=== PATIENT | female | born 1975 | race African-American/Black ===

== ENCOUNTER 2017-08-07 11:51 | Emergency (ER) | payer MEDICAID | END 2017-08-07 13:44 | disposition home or self-care (01) | LOC: D.ER 11:51 | DX: R06.00 Dyspnea, unspecified (principal); J98.4 Other disorders of lung; F17.200 Nicotine dependence, unspecified, uncomplicated ==

== ENCOUNTER 2017-11-01 04:59 | Emergency (ER) | payer BC | END 2017-11-01 06:35 | disposition home or self-care (01) | LOC: D.ER 04:59 | DX: J20.9 Acute bronchitis, unspecified (principal); J98.4 Other disorders of lung; F17.200 Nicotine dependence, unspecified, uncomplicated ==

== ENCOUNTER 2018-03-05 21:42 | Inpatient (IN) | payer BC ==
[~2018-03-05] VITALS: Ht 154.9 cm; Wt 50.0 kg
[2018-03-05 22:28] LABS: MCHC 24.7 g/dL (31.0-37.0); PLATELET COUNT 168 10x3/uL (130-400); RBC 3.54 10x6/uL (4.00-5.40); RDW 23.4 % (11.5-14.5); WBC 10.5 10x3/uL (4.8-10.8)
[2018-03-05 22:29] LABS: HEMATOCRIT 17.4 % (36.0-48.0); HEMOGLOBIN 4.3 g/dL (12-16); MCH 12.1 pg (26.0-34.0); MCV 49.2 fL (80.0-100.0)
[2018-03-05 22:44] LABS: ALBUMIN 3.4 g/dL (3.4-5.0); ALKALINE PHOSPHATASE 111 U/L (46-116); ALT (SGPT) 17 U/L (10-68); CALC OSMOLALITY 270 mosm/kg (275-300); CALCIUM 8.4 mg/dL (8.5-10.1); CARBON DIOXIDE 25.6 mmol/L (21.0-32.0); CHLORIDE - SERUM 103 mmol/L (98-107); CREATININE - SERUM 0.7 mg/dL (0.6-1.3); GLUCOSE 106 mg/dL (74-106); POTASSIUM - SERUM 3.6 mmol/L (3.5-5.1); PROTEIN - SERUM 8.5 g/dL (6.4-8.2); SODIUM 136 mmol/L (136-145); TROPONIN-I < 0.017 ng/mL (0.000-0.060); UREA NITROGEN 9 mg/dL (7-18); eGFR NON AFRICAN AMERICAN > 90 mL/min (90-120)
[2018-03-05 23:10] LABS: INR 1.19 (0.85-1.17); PROTIME 14.6 SECONDS (11.6-15.0)
[2018-03-06] VITALS (32 sets, daily range): BP systolic 102–128; BP diastolic 44–86; Ht 154.9 cm; Wt 50.0 kg
[2018-03-06] MEDS ORDERED: VENTOLIN HFA18 GM INH (04:32)
[2018-03-06 14:16] LABS: BASOPHILS 0.4 % (0-2); EOSINOPHILS 0.1 % (0-7); HEMATOCRIT 30.3 % (36.0-48.0); HEMOGLOBIN 8.9 g/dL (12-16); IMMATURE GRANULOCYTES 0.4 % (0-5); LYMPHOCYTES 9.8 % (15-50); MCH 17.9 pg (26.0-34.0); MCHC 29.4 g/dL (31.0-37.0); MCV 61.1 fL (80.0-100.0); MONOCYTES 10.2 % (2-11); NEUTROPHILS 79.1 % (40-80); PLATELET COUNT 143 10x3/uL (130-400); RBC 4.96 10x6/uL (4.00-5.40)
[2018-03-06 16:17] LABS: HCG SERUM NEGATIVE (NEGATIVE)
[2018-03-06 20:02] LABS: BASOPHILS 0.3 % (0-2); EOSINOPHILS 0.2 % (0-7); HEMATOCRIT 27.3 % (36.0-48.0); HEMOGLOBIN 7.9 g/dL (12-16); IMMATURE GRANULOCYTES 0.3 % (0-5); LYMPHOCYTES 14.3 % (15-50); MCHC 28.9 g/dL (31.0-37.0); MCV 61.2 fL (80.0-100.0); MONOCYTES 11.2 % (2-11); NEUTROPHILS 73.7 % (40-80); PLATELET COUNT 146 10x3/uL (130-400); RBC 4.46 10x6/uL (4.00-5.40); WBC 10.8 10x3/uL (4.8-10.8)
[2018-03-06 20:03] LABS: MCH 17.7 pg (26.0-34.0)
[2018-03-07] VITALS (20 sets, daily range): BP systolic 96–121; BP diastolic 53–79
[2018-03-07 04:10] LABS: BASOPHILS 0.3 % (0-2); EOSINOPHILS 0.3 % (0-7); HEMATOCRIT 25.6 % (36.0-48.0); IMMATURE GRANULOCYTES 0.2 % (0-5); LYMPHOCYTES 12.1 % (15-50); MCHC 28.9 g/dL (31.0-37.0); MCV 61.7 fL (80.0-100.0); MONOCYTES 8.4 % (2-11); NEUTROPHILS 78.7 % (40-80); PLATELET COUNT 141 10x3/uL (130-400); RBC 4.15 10x6/uL (4.00-5.40); WBC 10.1 10x3/uL (4.8-10.8)
[2018-03-07 04:15] LABS: HEMOGLOBIN 7.4 g/dL (12-16); MCH 17.8 pg (26.0-34.0)
[2018-03-07 04:23] LABS: INR 1.25 (0.85-1.17); PROTIME 15.2 SECONDS (11.6-15.0)
[2018-03-07 04:28] LABS: ALBUMIN 2.9 g/dL (3.4-5.0); ALKALINE PHOSPHATASE 94 U/L (46-116); ALT (SGPT) 15 U/L (10-68); AMYLASE - SERUM 27 U/L (25-115); CALC OSMOLALITY 277 mosm/kg (275-300); CARBON DIOXIDE 25.3 mmol/L (21.0-32.0); CHLORIDE - SERUM 107 mmol/L (98-107); GLUCOSE 89 mg/dL (74-106); POTASSIUM - SERUM 3.2 mmol/L (3.5-5.1); PRE-ALBUMIN 8.6 mg/dL (18.0-35.7); PROTEIN - SERUM 7.5 g/dL (6.4-8.2); SODIUM 141 mmol/L (136-145); UREA NITROGEN 7 mg/dL (7-18)
[2018-03-07 04:33] LABS: CREATININE - SERUM 0.5 mg/dL (0.6-1.3); LIPASE 34 U/L (73-393); eGFR NON AFRICAN AMERICAN > 90 mL/min (90-120)
[2018-03-07 08:16] LABS: BASOPHILS 0.5 % (0-2); EOSINOPHILS 0.4 % (0-7); HEMATOCRIT 24.9 % (36.0-48.0); IMMATURE GRANULOCYTES 0.2 % (0-5); LYMPHOCYTES 12.2 % (15-50); MCHC 28.9 g/dL (31.0-37.0); MCV 62.1 fL (80.0-100.0); MONOCYTES 9.6 % (2-11); NEUTROPHILS 77.1 % (40-80); PLATELET COUNT 142 10x3/uL (130-400); RBC 4.01 10x6/uL (4.00-5.40); WBC 9.4 10x3/uL (4.8-10.8)
[2018-03-07 08:18] LABS: HEMOGLOBIN 7.2 g/dL (12-16)
[2018-03-07 19:05] LABS: BASOPHILS 0.4 % (0-2); EOSINOPHILS 0.4 % (0-7); IMMATURE GRANULOCYTES 0.2 % (0-5); LYMPHOCYTES 10.2 % (15-50); MONOCYTES 10.1 % (2-11); NEUTROPHILS 78.7 % (40-80); PLATELET COUNT 150 10x3/uL (130-400); WBC 10.6 10x3/uL (4.8-10.8)
[2018-03-07 19:06] LABS: HEMOGLOBIN 9.6 g/dL (12-16); RBC 4.83 10x6/uL (4.00-5.40)
[2018-03-07 19:07] LABS: MCH 19.9 pg (26.0-34.0); MCV 66.3 fL (80.0-100.0)
[2018-03-08 03:00] VITALS: BP 113/75
[2018-03-08 03:27] LABS: BASOPHILS 0.2 % (0-2); EOSINOPHILS 0.7 % (0-7); HEMATOCRIT 31.9 % (36.0-48.0); HEMOGLOBIN 9.5 g/dL (12-16); IMMATURE GRANULOCYTES 0.1 % (0-5); LYMPHOCYTES 7.2 % (15-50); MCHC 29.8 g/dL (31.0-37.0); MONOCYTES 4.9 % (2-11); NEUTROPHILS 86.9 % (40-80); RBC 4.76 10x6/uL (4.00-5.40); WBC 9.1 10x3/uL (4.8-10.8)
[2018-03-08 03:34] LABS: PLATELET COUNT 117 10x3/uL (130-400)
[2018-03-08 03:52] LABS: ALBUMIN 2.8 g/dL (3.4-5.0); ALKALINE PHOSPHATASE 89 U/L (46-116); ALT (SGPT) 14 U/L (10-68); BILIRUBIN - TOTAL 1.15 mg/dL (0.2-1.3); CALC OSMOLALITY 273 mosm/kg (275-300); CALCIUM 8.2 mg/dL (8.5-10.1); CHLORIDE - SERUM 107 mmol/L (98-107); CREATININE - SERUM 0.4 mg/dL (0.6-1.3); GLUCOSE 91 mg/dL (74-106); POTASSIUM - SERUM 3.7 mmol/L (3.5-5.1); PROTEIN - SERUM 7.6 g/dL (6.4-8.2); SODIUM 138 mmol/L (136-145); UREA NITROGEN 8 mg/dL (7-18); eGFR NON AFRICAN AMERICAN > 90 mL/min (90-120)
[2018-03-08 07:00] VITALS: BP 113/65
[2018-03-08 08:42] LABS: BASOPHILS 0.1 % (0-2); EOSINOPHILS 0 % (0-7); HEMATOCRIT 36.3 % (36.0-48.0); HEMOGLOBIN 10.7 g/dL (12-16); IMMATURE GRANULOCYTES 0.2 % (0-5); LYMPHOCYTES 9.1 % (15-50); MCH 19.9 pg (26.0-34.0); MCHC 29.5 g/dL (31.0-37.0); MCV 67.6 fL (80.0-100.0); MONOCYTES 1.8 % (2-11); NEUTROPHILS 88.8 % (40-80); PLATELET COUNT 150 10x3/uL (130-400); RBC 5.37 10x6/uL (4.00-5.40); WBC 9.1 10x3/uL (4.8-10.8)
[2018-03-08 10:54] VITALS: BP 118/85
[2018-03-08 13:55] LABS: BASOPHILS 0.1 % (0-2); EOSINOPHILS 0 % (0-7); HEMATOCRIT 32.8 % (36.0-48.0); HEMOGLOBIN 9.8 g/dL (12-16); IMMATURE GRANULOCYTES 0.1 % (0-5); MCH 20.1 pg (26.0-34.0); MCHC 29.9 g/dL (31.0-37.0); MCV 67.4 fL (80.0-100.0); MONOCYTES 0.9 % (2-11); NEUTROPHILS 91.9 % (40-80); PLATELET COUNT 158 10x3/uL (130-400); RBC 4.87 10x6/uL (4.00-5.40); WBC 8.7 10x3/uL (4.8-10.8)
[2018-03-08 15:02] VITALS: BP 105/62
[2018-03-08 19:52] LABS: BASOPHILS 0 % (0-2); EOSINOPHILS 0 % (0-7); HEMATOCRIT 35.2 % (36.0-48.0); HEMOGLOBIN 10.5 g/dL (12-16); IMMATURE GRANULOCYTES 0.2 % (0-5); LYMPHOCYTES 9.1 % (15-50); MCH 20.2 pg (26.0-34.0); MCHC 29.8 g/dL (31.0-37.0); MCV 67.6 fL (80.0-100.0); MONOCYTES 2.1 % (2-11); NEUTROPHILS 88.6 % (40-80); PLATELET COUNT 161 10x3/uL (130-400); RBC 5.21 10x6/uL (4.00-5.40); WBC 8.3 10x3/uL (4.8-10.8)
[2018-03-08 21:56] VITALS: BP 115/56
[2018-03-09 02:21] LABS: BASOPHILS 0 % (0-2); EOSINOPHILS 0 % (0-7); HEMATOCRIT 32.4 % (36.0-48.0); HEMOGLOBIN 9.7 g/dL (12-16); IMMATURE GRANULOCYTES 0.2 % (0-5); LYMPHOCYTES 9.9 % (15-50); MCH 20.1 pg (26.0-34.0); MCHC 29.9 g/dL (31.0-37.0); MCV 67.2 fL (80.0-100.0); NEUTROPHILS 81.9 % (40-80); PLATELET COUNT 214 10x3/uL (130-400); RBC 4.82 10x6/uL (4.00-5.40); WBC 12.4 10x3/uL (4.8-10.8)
[2018-03-09 02:28] VITALS: BP 107/58
[2018-03-09 02:33] LABS: ALBUMIN 2.8 g/dL (3.4-5.0); ALKALINE PHOSPHATASE 85 U/L (46-116); ALT (SGPT) 13 U/L (10-68); CALC OSMOLALITY 284 mosm/kg (275-300); CALCIUM 8.2 mg/dL (8.5-10.1); CHLORIDE - SERUM 107 mmol/L (98-107); CREATININE - SERUM 0.6 mg/dL (0.6-1.3); GLUCOSE 135 mg/dL (74-106); POTASSIUM - SERUM 3.4 mmol/L (3.5-5.1); PROTEIN - SERUM 7.6 g/dL (6.4-8.2); SODIUM 142 mmol/L (136-145); UREA NITROGEN 12 mg/dL (7-18); eGFR NON AFRICAN AMERICAN > 90 mL/min (90-120)
[2018-03-09 09:41] VITALS: BP 133/82
[2018-03-09 09:49] LABS: BASOPHILS 0.1 % (0-2); EOSINOPHILS 0.1 % (0-7); HEMATOCRIT 32.7 % (36.0-48.0); HEMOGLOBIN 9.7 g/dL (12-16); IMMATURE GRANULOCYTES 0.3 % (0-5); LYMPHOCYTES 12.5 % (15-50); MCHC 29.7 g/dL (31.0-37.0); MCV 67.3 fL (80.0-100.0); MONOCYTES 8.5 % (2-11); NEUTROPHILS 78.5 % (40-80); PLATELET COUNT 182 10x3/uL (130-400); RBC 4.86 10x6/uL (4.00-5.40); WBC 15.1 10x3/uL (4.8-10.8)
[2018-03-09 12:12] LABS: CA 19-9 34 U/mL (0-35); CEA 1.2 ng/mL (0.0-4.7)
[2018-03-09] MEDS ORDERED: CARAFATE1 G/10 ML PO (12:15)
[2018-03-09] MEDS ORDERED: NICODERM C1 PATCH .3 TRANSDERM (12:15)
[2018-03-09] MEDS ORDERED: PROTONIX40 MG PO (12:16)
[2018-03-09] MEDS ORDERED: FERROUS SULFAT325 MG PO (12:16)
[2018-03-09 13:34] VITALS: BP 124/77
[2018-03-09 14:37] LABS: BASOPHILS 0.2 % (0-2); EOSINOPHILS 0.2 % (0-7); HEMATOCRIT 31.4 % (36.0-48.0); HEMOGLOBIN 9.3 g/dL (12-16); IMMATURE GRANULOCYTES 0.2 % (0-5); LYMPHOCYTES 12.2 % (15-50); MCH 20.1 pg (26.0-34.0); MCHC 29.6 g/dL (31.0-37.0); MCV 67.8 fL (80.0-100.0); MONOCYTES 7.1 % (2-11); NEUTROPHILS 80.1 % (40-80); PLATELET COUNT 184 10x3/uL (130-400); RBC 4.63 10x6/uL (4.00-5.40)
[2018-03-09 14:44] LABS: SCLERODERMA AB (SCL-70) <0.2 AI (0.0-0.9); SJOGRENS AB SSA <0.2 AI (0.0-0.9)
[2018-03-09 17:17] VITALS: BP 139/89
[2018-03-09 21:06] LABS: BASOPHILS 0.3 % (0-2); EOSINOPHILS 0.6 % (0-7); HEMATOCRIT 30.6 % (36.0-48.0); HEMOGLOBIN 8.9 g/dL (12-16); IMMATURE GRANULOCYTES 0.3 % (0-5); LYMPHOCYTES 10.4 % (15-50); MCHC 29.1 g/dL (31.0-37.0); MONOCYTES 5.4 % (2-11); PLATELET COUNT 182 10x3/uL (130-400); WBC 10.1 10x3/uL (4.8-10.8)
[2018-03-09 21:07] LABS: MCH 19.8 pg (26.0-34.0)
[2018-03-09 22:09] VITALS: BP 131/76
[2018-03-10 00:17] VITALS: BP 134/78
[2018-03-10 04:31] VITALS: BP 148/74
[2018-03-10 07:51] LABS: BASOPHILS 0.1 % (0-2); EOSINOPHILS 0 % (0-7); HEMATOCRIT 30.8 % (36.0-48.0); HEMOGLOBIN 9.1 g/dL (12-16); IMMATURE GRANULOCYTES 0.3 % (0-5); MCH 20.2 pg (26.0-34.0); MCHC 29.5 g/dL (31.0-37.0); MCV 68.3 fL (80.0-100.0); MONOCYTES 1.4 % (2-11); NEUTROPHILS 91.2 % (40-80); PLATELET COUNT 210 10x3/uL (130-400); RBC 4.51 10x6/uL (4.00-5.40)
[2018-03-10 08:03] LABS: ALBUMIN 2.5 g/dL (3.4-5.0); ALKALINE PHOSPHATASE 75 U/L (46-116); ALT (SGPT) 13 U/L (10-68); BILIRUBIN - TOTAL 0.51 mg/dL (0.2-1.3); CALC OSMOLALITY 281 mosm/kg (275-300); CALCIUM 8.4 mg/dL (8.5-10.1); CARBON DIOXIDE 23.1 mmol/L (21.0-32.0); CHLORIDE - SERUM 108 mmol/L (98-107); GLUCOSE 110 mg/dL (74-106); POTASSIUM - SERUM 3.8 mmol/L (3.5-5.1); SODIUM 141 mmol/L (136-145); UREA NITROGEN 12 mg/dL (7-18)
[2018-03-10 08:04] LABS: CREATININE - SERUM 0.4 mg/dL (0.6-1.3); eGFR NON AFRICAN AMERICAN > 90 mL/min (90-120)
[2018-03-10 08:10] VITALS: BP 135/81
[2018-03-10] MEDS ORDERED: LEVAQUIN750 MG PO (11:35)
[2018-03-10 11:41] VITALS: BP 118/62
[2018-03-11 16:58] LABS: HGB - A 97.8 % (96.4-98.8); HGB - A2 2.2 % (1.8-3.2); HGB - INTERPRETATION Note: (()); HGB - SOLUBILITY Negative (Negative)
== END 2018-03-10 15:30 | disposition home or self-care (01) | DRG 811 ==
LOC: D.ER 21:42 → D.MS 23:03 → D.EDHOLD 23:03 → D.ICU 23:03 → D.MS 03-08 18:48
PROVIDERS: Emergency Medicine; Family Medicine; Internal Medicine Gastroenterology; Internal Medicine Nephrology
PROC: 0DB78ZX Excision of Stomach, Pylorus, Via Natural or Artificial Opening Endoscopic, Diagnostic (ICD-10-PCS; 2018-03-06)
PROC: 0D758ZZ Dilation of Esophagus, Via Natural or Artificial Opening Endoscopic (ICD-10-PCS; 2018-03-06)
PROC: 0DB58ZX Excision of Esophagus, Via Natural or Artificial Opening Endoscopic, Diagnostic (ICD-10-PCS; principal; 2018-03-06 16:00)
DX: D62 Acute posthemorrhagic anemia (principal); E43 Unspecified severe protein-calorie malnutrition; R07.9 Chest pain, unspecified; J44.9 Chronic obstructive pulmonary disease, unspecified; R13.12 Dysphagia, oropharyngeal phase; R14.0 Abdominal distension (gaseous); R63.4 Abnormal weight loss; E61.1 Iron deficiency; K59.00 Constipation, unspecified; K44.9 Diaphragmatic hernia without obstruction or gangrene; K22.2 Esophageal obstruction; K29.70 Gastritis, unspecified, without bleeding; N92.0 Excessive and frequent menstruation with regular cycle

== ENCOUNTER 2019-04-27 15:03 | Inpatient (IN) | payer BC ==
[~2019-04-27] VITALS: Ht 154.9 cm; Wt 45.8 kg
[~2019-04-27 15:03] MED LIST: CARAFATE1 G/10 ML PO; FERROUS SULFAT325 MG PO; LEVAQUIN750 MG PO; NICODERM C1 PATCH .3 TRANSDERM; PROTONIX40 MG PO; VENTOLIN HFA18 GM INH
[2019-04-27 15:36] VITALS: BMI 19.1
[2019-04-27 18:03] LABS: ALBUMIN 3.6 g/dL (3.4-5.0); ALKALINE PHOSPHATASE 94 U/L (46-116); ALT (SGPT) 32 U/L (10-68); BILIRUBIN - TOTAL 0.72 mg/dL (0.2-1.3); C-REACTIVE PROTEIN 11.9 mg/dL (0.0-0.9); CALC OSMOLALITY 269 mosm/kg (275-300); CALCIUM 8.7 mg/dL (8.5-10.1); CARBON DIOXIDE 25.6 mmol/L (21.0-32.0); CHLORIDE - SERUM 99 mmol/L (98-107); CREATININE - SERUM 0.7 mg/dL (0.6-1.3); GLUCOSE 83 mg/dL (74-106); PROTEIN - SERUM 7.6 g/dL (6.4-8.2); SODIUM 136 mmol/L (136-145); THYROID STIMULATING HORMONE 1.31 uIU/mL (0.36-3.74); UREA NITROGEN 9 mg/dL (7-18); eGFR NON AFRICAN AMERICAN > 90 mL/min (90-120)
[2019-04-27 18:10] LABS: BASOPHILS 0.3 % (0-2); EOSINOPHILS 0.5 % (0-7); HEMATOCRIT 27.3 % (36.0-48.0); IMMATURE GRANULOCYTES 0.4 % (0-5); LYMPHOCYTES 11.7 % (15-50); MCHC 26.7 g/dL (31.0-37.0); MCV 52.6 fL (80.0-100.0); MONOCYTES 7.1 % (2-11); RBC 5.19 10x6/uL (4.00-5.40); RDW 25.5 % (11.5-14.5); WBC 14.7 10x3/uL (4.8-10.8)
[2019-04-27 18:14] LABS: HEMOGLOBIN 7.3 g/dL (12-16); MCH 14.1 pg (26.0-34.0); PLATELET COUNT 254 10x3/uL (130-400)
[2019-04-27 18:25] VITALS: BP 108/59
--- NOTE | 2019-04-27 19:01 | NUR ---
REPORT RECEIVED, CARE ASSUMED. PT IS SITTING UP ON THE SIDE OF THE BED AT THIS TIME. PT COMPLAINS OF BODY ACHES ASSOCIATED WITH RUNNING A TEMPERTURE, PRN MEDICATIONS TO BE GIVEN FOR FEVER. NO FURTHER NEEDS NOTED. NO SIGNS OF ACUTE DISTRESS. WILL CONTINUE TO MONITOR.
[2019-04-27 20:00] VITALS: BP 113/59
[2019-04-28] VITALS: BP 98/55
[2019-04-28 04:00] VITALS: BP 97/54
[2019-04-28 07:33] LABS: BASOPHILS 0.1 % (0-2); EOSINOPHILS 0 % (0-7); HEMATOCRIT 25.3 % (36.0-48.0); IMMATURE GRANULOCYTES 0.2 % (0-5); LYMPHOCYTES 7.1 % (15-50); MCHC 26.1 g/dL (31.0-37.0); MCV 53.3 fL (80.0-100.0); MONOCYTES 0.7 % (2-11); NEUTROPHILS 91.9 % (40-80); PLATELET COUNT 275 10x3/uL (130-400); RBC 4.75 10x6/uL (4.00-5.40); RDW 25.8 % (11.5-14.5)
[2019-04-28 07:48] LABS: MCH 13.9 pg (26.0-34.0); WBC 10.7 10x3/uL (4.8-10.8)
[2019-04-28 07:50] LABS: HEMOGLOBIN 6.6 g/dL (12-16)
[2019-04-28 08:04] LABS: ALBUMIN 2.9 g/dL (3.4-5.0); ALKALINE PHOSPHATASE 82 U/L (46-116); BILIRUBIN - TOTAL 0.45 mg/dL (0.2-1.3); CALCIUM 8.1 mg/dL (8.5-10.1); CARBON DIOXIDE 23.4 mmol/L (21.0-32.0); CHLORIDE - SERUM 104 mmol/L (98-107); CREATININE - SERUM 0.7 mg/dL (0.6-1.3); FERRITIN 10 ng/mL (3-244); MAGNESIUM - SERUM 2.1 mg/dL (1.8-2.4); PHOSPHOROUS 3.5 mg/dL (2.5-4.9); POTASSIUM - SERUM 4.2 mmol/L (3.5-5.1); PROTEIN - SERUM 7.4 g/dL (6.4-8.2); SODIUM 138 mmol/L (136-145); UREA NITROGEN 9 mg/dL (7-18); eGFR NON AFRICAN AMERICAN > 90 mL/min (90-120)
[2019-04-28 08:05] LABS: % SATURATION 2 % (15-55); IRON 9 ug/dl (35-150); TOTAL IRON BIND CAPACITY 405 ug/dl (260-445); UNSAT IRON BIND CAPACITY 396 ug/dl (150-375)
[2019-04-28 08:06] LABS: ALT (SGPT) 22 U/L (10-68); CALC OSMOLALITY 279 mosm/kg (275-300); GLUCOSE 185 mg/dL (74-106)
[2019-04-28 08:30] VITALS: BP 99/50
--- NOTE | 2019-04-28 08:32 | NUR ---
NISHA ESTRADA, NOTIFIED IN REGARDS TO LOW HEMOGLOBIN. NEW ORDERS RECEIVED
[2019-04-28 09:10] LABS: APTT 36.2 SECONDS (22.8-39.4); INR 1.27 (0.85-1.17); PROTIME 15.4 SECONDS (11.6-15.0)
[2019-04-28 10:33] VITALS: Ht 154.9 cm; Wt 45.8 kg
--- NOTE | 2019-04-28 11:22 | MORECARE ---
CASE MANAGEMENT DISCHARGE SUMMARY PATIENT: MAJOR MCCLAIN UNIT: [id number] ADM DATE: 04/27/19 AGE: 43 : 77 SEX: F ROOM/BED: D.1202 AUTHOR: EVA,DOC PHYSICIAN: REFERRING PHYSICIAN: CLARA COLLIER MD DATE OF SERVICE: 04/28/19 Discharge Plan Patient Name: MAJOR MCCLAIN Facility: [facility]:[place] : 1975 Planned Disposition: Home Anticipated Discharge Date: 04/30/19 Discharge Date: Expected LOS: 3 Initial Reviewer: [email or web address] Initial Review Date: 04/27/2019 Generated: 04/28/19 12:21 pm DCP- Discharge Planning Updated by [email or web address]: Shanae Soria on 04/28/19 10:[address] Patient Name: MAJOR MCCLAIN Admission Status: Elective Accout number: [id number] Admission Date: 04-27-2019 : 1975 Admission Diagnosis: Attending: AMIRA, Current LOS: 1 Anticipated DC Date: 04-30-2019 Planned Disposition: Home Primary Insurance: [employer] [facility] [place] Planning Comments: CM met with patient to complete initial dc planning assessment. CM educated patient on the CM role and verbal consent given by patient to complete assessment. CM verified patient's address, phone number, and emergency contact phone numbers. Patient lives at and her children live with her. She reports she is independent in her care at home. At discharge patient plans to return home and feels this is a safe discharge. CM discussed availability of home health, rehab services, and medical equipment. Patient denied known discharge needs at this time. Patient reports her son or daughter will transport her home at time of discharge. CM will continue to follow and will assist as needed with dc plans/needs. Hemmer Chainstitch: Shanae Soria RN, [facility] DCPIA - Discharge Planning Initial Assessment Updated by [email or web address]: Shanae Soria on 04/28/19 11:15 am * Is the patient Alert and Oriented? Yes * How many steps to enter\exit or inside your home? none * PCP Dr. Collier * Pharmacy [facility] * Preadmission Environment Home with Family * ADLs Independent * Equipment None * List name and contact numbers for known caregivers / representatives who currently or will assist patient after discharge: Nicole Mcclain -mother- [phone] * Verbal permission to speak to the caregivers and representatives has been obtained from the patient. Yes * Community resources currently utilized None * Additional services required to return to the preadmission environment? No * Can the patient safely return to the preadmission environment? Yes * Has this patient been hospitalized within the prior 30 days at any hospital? No Patient Name: MAJOR MCCLAIN Page 15550 at 1122 All edits/amendments must be made on the electronic document DICTATION DATE: 04/28/19 112 DE IONIZER OPERATOR: JAVI 04/28/19 112 RPT#: [id number] DC DATE: STATUS: ADM IN [facility] [address] [place] [address] END OF REPORT
[2019-04-28 12:18] VITALS: BP 100/75
[2019-04-28 13:07] LABS: HEMATOCRIT 25.5 % (36.0-48.0)
[2019-04-28 13:13] LABS: HEMOGLOBIN 6.9 g/dL (12-16)
--- NOTE | 2019-04-28 15:16 | NUR ---
SURGERY CALLED TO PREMED PATIENT FOR EGD, DONE
--- NOTE | 2019-04-28 16:10 | NUR ---
PATIENT TAKEN FOR EGD
[2019-04-28 16:57] LABS: HCG URINE NEGATIVE (NEGATIVE)
--- NOTE | 2019-04-28 17:29 | NUR ---
PATIENT RETURNED FROM HAVING EGD. REPORTED THAT THIS PATIENT WAS NOT ABLE TO TOLERATE PROCEEDURE. AND PROCEEDURE WITH NOT COMPLETETED.
[2019-04-28 17:58] LABS: HEMATOCRIT 24.9 % (36.0-48.0)
--- NOTE | 2019-04-28 18:33 | NUR ---
I have reviewed this patient and I concur with the Shift Assessment completed by the Licensed Practical Nurse today this shift.
--- NOTE | 2019-04-28 18:47 | NUR ---
LAB CALLED WITH CRITICAL HEMOGLOBIN OF 7.0. MILI NUMERICAL CONTROL NESTING OPERATOR. MILI PAGED. STATED HE WOULD PUT IN NEW ORDERS FOR ONE UNIT OF PRBC TO RUN SLOW
[2019-04-28 20:00] VITALS: BP 97/58
--- NOTE | 2019-04-28 22:10 | NUR ---
STARTING 2ND UNIT OF PRBC'S ORDERED FOR HEMATOCRIT OF 7.0 WITHOUT S/S OF ADVERSE REACTIONS. TIME 2214, T-98.2 P-85, R-16, BP-90/52, PT CALM SITTING IN BED LOWEST POSITION WATCHING TV, DAUGHTER AT BEDSIDE, FLUIDS AND CALL LIGHT WITHIN REACH, RESPIRATIOND SLOW-EVEN- UNLABORED
--- NOTE | 2019-04-28 23:26 | NUR ---
collected urine sample at 2258 and delivered to lab for ua, still waiting to collect stool sample
[2019-04-29] VITALS: BP 102/56
[2019-04-29 00:03] LABS: COLOR YELLOW (YELLOW)
[2019-04-29 00:04] LABS: APPEARANCE SL CLDY (CLEAR); BILIRUBIN NEGATIVE (NEGATIVE); GLUCOSE 250 mg/dL (NEGATIVE); KETONE NEGATIVE (NEGATIVE); NITRITE NEGATIVE (NEGATIVE); PROTEIN NEGATIVE (NEGATIVE); UROBILINOGEN NORMAL (NORMAL)
[2019-04-29 00:05] LABS: BACTERIA MODERATE /hpf (NONE SEEN); EPITHELIAL CELLS 0-5 /hpf (0-5)
[2019-04-29 04:00] VITALS: BP 98/60
[2019-04-29 06:10] LABS: FOLATE (FOLIC ACID) - SERUM 9.6 ng/mL (>3.0)
[2019-04-29 06:17] LABS: CALC OSMOLALITY 281 mosm/kg (275-300); CALCIUM 7.9 mg/dL (8.5-10.1); CHLORIDE - SERUM 109 mmol/L (98-107); GLUCOSE 142 mg/dL (74-106); MAGNESIUM - SERUM 2.1 mg/dL (1.8-2.4); POTASSIUM - SERUM 3.8 mmol/L (3.5-5.1); SODIUM 141 mmol/L (136-145); UREA NITROGEN 11 mg/dL (7-18)
[2019-04-29 06:20] LABS: CREATININE - SERUM 0.5 mg/dL (0.6-1.3); PHOSPHOROUS 2.3 mg/dL (2.5-4.9); eGFR NON AFRICAN AMERICAN > 90 mL/min (90-120)
[2019-04-29 06:21] LABS: BASOPHILS 0 % (0-2); EOSINOPHILS 0 % (0-7); HEMATOCRIT 26.2 % (36.0-48.0); HEMOGLOBIN 7.7 g/dL (12-16); IMMATURE GRANULOCYTES 0.3 % (0-5); LYMPHOCYTES 4.7 % (15-50); MCHC 29.4 g/dL (31.0-37.0); MONOCYTES 3.2 % (2-11); NEUTROPHILS 91.8 % (40-80); PLATELET COUNT 227 10x3/uL (130-400); RBC 4.42 10x6/uL (4.00-5.40); RDW 32.8 % (11.5-14.5)
--- NOTE | 2019-04-29 06:25 | NUR ---
PT IN BED LOWEST POSITION, EYES CLOSED, AROUSES EASILY TO VOICE, RESPIRATIONS SLOW, EVEN, AND UNLABORED, NO IMMEDIATE NEEDS NOTED, FLUIDS AND CALL LIGHT WITHIN REACH
[2019-04-29 06:27] LABS: MCH 17.4 pg (26.0-34.0); MCV 59.3 fL (80.0-100.0); WBC 16.5 10x3/uL (4.8-10.8)
--- NOTE | 2019-04-29 07:20 | NUR ---
INITIAL ROUNDING, THE PATIENT IS AWAKE AND SITTING UP IN THE BED, SHE HAS JUST SIGNED CONSENTS FOR THE POSSIBLE EGD TODAY, SHE ADMITS TO EATING OREOS AND DRINKING DP AROUND 3 THIS MORNING BUT HAS BEEN NPO SINCE. SHE DENIES NEEDS AT THIS TIME. VISITOR ASLEEP IN BEDSIDE CHAIR. CALL LIGHT IN REACH.
[2019-04-29 08:26] VITALS: BP 98/58
--- NOTE | 2019-04-29 09:01 | NUR ---
NO TELE BOX AVAILABLE TO PUT ON PATIENT ORDERED
[2019-04-29 12:23] VITALS: BP 101/49
--- NOTE | 2019-04-29 15:44 | NUR ---
THE PATIENT HAS BEEN OFF OXYGEN FOR 2 HOURS NOW AND O2 SAT IS 99 % ON ROOM AIR, SHE IS CONCERNED ABOUT WHEN SHE GETS HOME AND DOES NOT HAVE HER INHALER TO USE BECAUSE SHE IS OUT. THIS NURSE ASSURED HER THAT ALL OF HER CONCERNS WILL BE ADDRESSED BEFORE SHE IS DISCHARGED
[2019-04-29 16:09] VITALS: BP 97/57
--- NOTE | 2019-04-29 19:45 | NUR ---
PT SITTING UP ON SIDE OF BED TALKING TO VISITORS. BED IN LOW. DENIES NEEDS OR PAIN AT THIS TIME. A/O X4. CALL LIGHT IN REACH. RESP EVEN AND UNLABORED. WCTM
[2019-04-29 20:00] VITALS: BP 96/55
--- NOTE | 2019-04-29 22:00 | NUR ---
PT UP AMBULATING AROUND ROOM. VISITORS IN ROOM. DENIES NEEDS AT THIS TIME. MEDS CRUSHED. IV INTACT. LUNGS CLEAR. BOWEL ACTIVE X4. CALL LIGHT IN REACH. WILL CONTINUE TO MONITOR.
[2019-04-30 00:25] VITALS: BP 92/44
--- NOTE | 2019-04-30 02:36 | NUR ---
I have reviewed this patient and I concur with the Shift Assessment completed by the Licensed Practical Nurse today this shift.
[2019-04-30 04:22] VITALS: BP 116/70
--- NOTE | 2019-04-30 04:24 | NUR ---
PT USING BATHROOM. DENIES NEEDS. CL IN REACH. CPOC
--- NOTE | 2019-04-30 06:50 | NUR ---
PATIENT AWAKE AND VISITING WITH THE SEVERAL FAMILY MEMBERS AT BEDSIDE. SHE DENIES ANY NEEDS AT THIS TIME. NO S/S OF SOB
[2019-04-30 07:34] LABS: CALC OSMOLALITY 278 mosm/kg (275-300); CALCIUM 8.5 mg/dL (8.5-10.1); CARBON DIOXIDE 26.5 mmol/L (21.0-32.0); CHLORIDE - SERUM 107 mmol/L (98-107); CREATININE - SERUM 0.6 mg/dL (0.6-1.3); MAGNESIUM - SERUM 1.9 mg/dL (1.8-2.4); PHOSPHOROUS 2.5 mg/dL (2.5-4.9); POTASSIUM - SERUM 3.7 mmol/L (3.5-5.1); SODIUM 140 mmol/L (136-145); UREA NITROGEN 13 mg/dL (7-18); eGFR NON AFRICAN AMERICAN > 90 mL/min (90-120)
[2019-04-30 07:36] LABS: GLUCOSE 90 mg/dL (74-106)
[2019-04-30 07:41] LABS: BASOPHILS 0 % (0-2); EOSINOPHILS 0 % (0-7); HEMATOCRIT 28.5 % (36.0-48.0); HEMOGLOBIN 8.3 g/dL (12-16); IMMATURE GRANULOCYTES 0.3 % (0-5); LYMPHOCYTES 9.2 % (15-50); MCHC 29.1 g/dL (31.0-37.0); MCV 59.5 fL (80.0-100.0); MONOCYTES 5.7 % (2-11); NEUTROPHILS 84.8 % (40-80); PLATELET COUNT 268 10x3/uL (130-400); RBC 4.79 10x6/uL (4.00-5.40); RDW 32.9 % (11.5-14.5); WBC 15.9 10x3/uL (4.8-10.8)
[2019-04-30 07:42] LABS: MCH 17.3 pg (26.0-34.0)
[2019-04-30 08:02] VITALS: BP 107/53
[2019-04-30] MEDS ORDERED: ZITHROMAX500 MG PO (13:21)
[2019-04-30] MEDS ORDERED: IPRAT-ALBUT 0.5-3 ML UPD (13:21)
[2019-04-30] MEDS ORDERED: PULMICORT0.5 MG/21 UPD (13:22)
[2019-04-30 13:26] VITALS: BP 122/56
--- NOTE | 2019-04-30 14:14 | MORECARE ---
CASE MANAGEMENT DISCHARGE SUMMARY PATIENT: MAJOR MCCLAIN UNIT: [id number] ADM DATE: 04/27/19 AGE: 43 : 77 SEX: F ROOM/BED: D.1202 AUTHOR: SHEILA VELASQUEZ PHYSICIAN: REFERRING PHYSICIAN: CLARA COLLIER MD DATE OF SERVICE: 04/30/19 Discharge Plan Patient Name: MAJOR MCCLAIN Facility: [facility]:[place] : 1975 Planned Disposition: Home Anticipated Discharge Date: 04/30/19 Discharge Date: Expected LOS: 3 Initial Reviewer: [email or web address] Initial Review Date: 04/27/2019 Generated: 04/30/19 3:14 pm Comments DCP- Discharge Planning Updated by [email or web address]: Dory Haile on 04/30/19 1:[address] Patient Name: MAJOR MCCLAIN Encounter No: [id number] : 1975 Primary Insurance: [employer] [facility] [place] Anticipated DC Date: 04-30-2019 Planned Disposition: Home External Planned Provider: : DCP follow-up note: Patient and family in agreement with discharge plan. No changes to plan. Case management will follow and assist as needed. Dory Haile DCP- Discharge Planning Updated by [email or web address]: Shanae Soria on 04/28/19 10:[address] Patient Name: MAJOR MCCLAIN Admission Status: Elective Accout number: [id number] Admission Date: 04-27-2019 : 1975 Admission Diagnosis: Attending: AMIRA, Current LOS: 1 Anticipated DC Date: 04-30-2019 Planned Disposition: Home Primary Insurance: [employer] [facility] [place] Discharge Planning Comments: CM met with patient to complete initial dc planning assessment. CM educated patient on the CM role and verbal consent given by patient to complete assessment. CM verified patient's address, phone number, and emergency contact phone numbers. Patient lives at and her children live with her. She reports she is independent in her care at home. At discharge patient plans to return home and feels this is a safe discharge. CM discussed availability of home health, rehab services, and medical equipment. Patient denied known discharge needs at this time. Patient reports her son or daughter will transport her home at time of discharge. CM will continue to follow and will assist as needed with dc plans/needs. Pyrometer Temperature Regulator: Shanae Soria RN, [facility] DCPIA - Discharge Planning Initial Assessment Updated by [email or web address]: Shanae Soria on 04/28/19 11:15 am * Is the patient Alert and Oriented? Yes * How many steps to enter\exit or inside your home? none * PCP Dr. Collier * Pharmacy [facility] * Preadmission Environment Home with Family * ADLs Independent * Equipment None * List name and contact numbers for known caregivers / representatives who currently or will assist patient after discharge: Nicole Mcclain -mother- [phone] * Verbal permission to speak to the caregivers and representatives has been obtained from the patient. Yes * Community resources currently utilized None * Additional services required to return to the preadmission environment? No * Can the patient safely return to the preadmission environment? Yes * Has this patient been hospitalized within the prior 30 days at any hospital? No Last DP export: 04/28/19 10:21 a Patient Name: MAJOR MCCLAIN Page 39687 at 1414 All edits/amendments must be made on the electronic document DICTATION DATE: 04/30/191412 REAL PROPERTY EVALUATOR: JAVI 04/30/191412 RPT#: [id number] DC DATE: STATUS: ADM IN [facility] [address] [place] [address] END OF REPORT
--- NOTE | 2019-04-30 15:26 | NUR ---
BOTH THE PATIENTS IV WERE REMOVED AND BOTH CATH TIP ARE INTACT. PATIENT IS READY FOR DISCHARGE. SEVERAL FAMILY MEMBERS AT THE BEDSIDE
--- NOTE | 2019-04-30 16:20 | MORECARE ---
CASE MANAGEMENT DISCHARGE SUMMARY PATIENT: MAJOR MCCLAIN UNIT: [id number] ADM DATE: 04/27/19 AGE: 43 : 77 SEX: F ROOM/BED: D.1202 AUTHOR: SHEILA VELASQUEZ PHYSICIAN: REFERRING PHYSICIAN: CLARA COLLIER MD DATE OF SERVICE: 04/30/19 Discharge Plan Patient Name: MAJOR MCCLAIN Facility: [facility]:[place] : 1975 Planned Disposition: Home Anticipated Discharge Date: 04/30/19 Discharge Date: Expected LOS: 3 Initial Reviewer: [email or web address] Initial Review Date: 04/27/2019 Generated: 04/30/19 5:20 pm Comments DCP- Discharge Planning Updated by [email or web address]: Dory Haile on 04/30/19 1:[address] Patient Name: MAJOR MCCLAIN Encounter No: [id number] : 1975 Primary Insurance: [employer] [facility] Anticipated DC Date: 04-30-2019 Planned Disposition: Home External Planned Provider: : DCP follow-up note: Patient and family in agreement with discharge plan. No changes to plan. Case management will follow and assist as needed. Dory Haile DCP- Discharge Planning Updated by [email or web address]: Shanae Soria on 04/28/19 10:[address] Patient Name: MAJOR MCCLAIN Admission Status: Elective Accout number: [id number] Admission Date: 04-27-2019 : 1975 Admission Diagnosis: Attending: AMIRA, Current LOS: 1 Anticipated DC Date: 04-30-2019 Planned Disposition: Home Primary Insurance: [employer] [facility] Discharge Planning Comments: CM met with patient to complete initial dc planning assessment. CM educated patient on the CM role and verbal consent given by patient to complete assessment. CM verified patient's address, phone number, and emergency contact phone numbers. Patient lives at and her children live with her. She reports she is independent in her care at home. At discharge patient plans to return home and feels this is a safe discharge. CM discussed availability of home health, rehab services, and medical equipment. Patient denied known discharge needs at this time. Patient reports her son or daughter will transport her home at time of discharge. CM will continue to follow and will assist as needed with dc plans/needs. Steam Shovel Operating Engineer: Shanae Soria RN, CCM DCPIA - Discharge Planning Initial Assessment Updated by [email or web address]: Shanae Soria on 04/28/19 11:15 am * Is the patient Alert and Oriented? Yes * How many steps to enter\exit or inside your home? none * PCP Dr. Collier * Pharmacy [facility] Preadmission Environment Home with Family * ADLs Independent * Equipment None * List name and contact numbers for known caregivers / representatives who currently or will assist patient after discharge: Nicole Mcclain -mother- [phone] * Verbal permission to speak to the caregivers and representatives has been obtained from the patient. Yes * Community resources currently utilized None * Additional services required to return to the preadmission environment? No * Can the patient safely return to the preadmission environment? Yes * Has this patient been hospitalized within the prior 30 days at any hospital? No External Providers External Provider: [facility] Next Contact Date: Service Request Date: Service Type: Resolution: Reviewer: Comments: Last DP export: 04/30/19 1:14 p Patient Name: MAJOR MCCLAIN Page 41214 at 1620 All edits/amendments must be made on the electronic document DICTATION DATE: 04/30/191618 ORAL PATHOLOGIST: JAVI 04/30/191618 RPT#: [id number] DC DATE: STATUS: ADM IN [facility] [address] [place] [address] END OF REPORT
--- NOTE | 2019-04-30 16:43 | MORECARE ---
CASE MANAGEMENT DISCHARGE SUMMARY PATIENT: MAJOR MCCLAIN UNIT: [id number] ADM DATE: 04/27/19 AGE: 43 : 77 SEX: F ROOM/BED: D.1202 AUTHOR: EVADOC PHYSICIAN: REFERRING PHYSICIAN: CLARA COLLIER MD DATE OF SERVICE: 04/30/19 Discharge Plan Patient Name: MAJOR MCCLAIN Facility: [facility]:[place] : 1975 Planned Disposition: Home Anticipated Discharge Date: 04/30/19 Discharge Date: 04/30/2019 Expected LOS: 3 Initial Reviewer: [email or web address] Initial Review Date: 04/27/2019 Generated: 04/30/19 5:43 pm Comments DCP- Discharge Planning Updated by [email or web address]: Dory Haile on 04/30/19 1:[address] Patient Name: MAJOR MCCLAIN Encounter No: [id number] : 1975 Primary Insurance: [employer] Anticipated DC Date: 04-30-2019 Planned Disposition: Home External Planned Provider: : DCP follow-up note: Patient and family in agreement with discharge plan. No changes to plan. Case management will follow and assist as needed. Dory Haile DCP- Discharge Planning Updated by [email or web address]: Shanae Soria on 04/28/19 10:[address] Patient Name: MAJOR MCCLAIN Admission Status: Elective Accout number: [id number] Admission Date: 04-27-2019 : 1975 Admission Diagnosis: Attending: AMIRA, Current LOS: 1 Anticipated DC Date: 04-30-2019 Planned Disposition: Home Primary Insurance: [employer] [facility] Discharge Planning Comments: CM met with patient to complete initial dc planning assessment. CM educated patient on the CM role and verbal consent given by patient to complete assessment. CM verified patient's address, phone number, and emergency contact phone numbers. Patient lives at and her children live with her. She reports she is independent in her care at home. At discharge patient plans to return home and feels this is a safe discharge. CM discussed availability of home health, rehab services, and medical equipment. Patient denied known discharge needs at this time. Patient reports her son or daughter will transport her home at time of discharge. CM will continue to follow and will assist as needed with dc plans/needs. Mechanical Fitter: Shanae Soria RN, [facility] DCPIA - Discharge Planning Initial Assessment Updated by [email or web address]: Shanae Soria on 04/28/19 11:15 am * Is the patient Alert and Oriented? Yes * How many steps to enter\exit or inside your home? none * PCP Dr. Collier * Pharmacy [facility] * Preadmission Environment Home with Family * ADLs Independent * Equipment None * List name and contact numbers for known caregivers / representatives who currently or will assist patient after discharge: Nicole Mcclain -mother- [phone] * Verbal permission to speak to the caregivers and representatives has been obtained from the patient. Yes * Community resources currently utilized None * Additional services required to return to the preadmission environment? No * Can the patient safely return to the preadmission environment? Yes * Has this patient been hospitalized within the prior 30 days at any hospital? No Coverage Notice Reviewer: [email or web address] Marco Haile Notice Issued Date-Time: 04/30/2019 16:36 Notice Type: Patient Choice Letter Notice Delivered To: Patient Relationship to Patient: Rack Pusher Name: Delivery Method: PHONE - Phone Wilda Days: Prior Verbal Notification: Yes Recipient Understood Notice: Yes Recipient Signature: Med Rec Note Co-signed by Attending: Coverage Notice Comment: PATIENT NEEDED NEB, PATIENT VERBALIZED WANTED TO GET IT FROM [facility]. [facility] CONTACTED AND PATIENT WILL FINISH PAINTER NEBULIZER. Last DP export: 04/30/19 3:20 p Patient Name: MAJOR MCCLAIN Page 51144 at 1643 All edits/amendments must be made on the electronic document DICTATION DATE: 04/30/191641 GROUNDS MAINTENANCE WORKER: JAVI 04/30/191641 RPT#: [id number] DC DATE:04/30/19 STATUS: DIS IN [facility] [address] [place] [address] END OF REPORT
[2019-05-01 06:10] LABS: VITAMIN D 25 HYDROXY 5.4 ng/mL (30.0-100.0)
== END 2019-04-30 16:27 | disposition home or self-care (01) | DRG 177 ==
LOC: D.M3 15:03
PROVIDERS: Internal Medicine Gastroenterology; Internal Medicine Nephrology; ADMIT Family Medicine; ATTEND Family Medicine
PROC: 0WJP8ZZ Inspection of Gastrointestinal Tract, Via Natural or Artificial Opening Endoscopic Approach (ICD-10-PCS; principal; 2019-04-28 16:45)
DX: J69.0 Pneumonitis due to inhalation of food and vomit (principal); J96.21 Acute and chronic respiratory failure with hypoxia; J44.0 Chronic obstructive pulmonary disease with (acute) lower respiratory infection; J44.1 Chronic obstructive pulmonary disease with (acute) exacerbation; F17.213 Nicotine dependence, cigarettes, with withdrawal; D86.0 Sarcoidosis of lung; J18.9 Pneumonia, unspecified organism; D50.9 Iron deficiency anemia, unspecified; R13.10 Dysphagia, unspecified; K22.2 Esophageal obstruction

== ENCOUNTER → 2019-05-25 14:40 | Outpatient (CLI) | payer MEDICAID ==
[2019-04-28 10:33] VITALS: BMI 19.0
[~2019-05-25 14:40] MED LIST changes: +IPRAT-ALBUT 0.5-3 ML UPD; +PULMICORT0.5 MG/21 UPD; +ZITHROMAX500 MG PO
== END | disposition home or self-care (01) ==
LOC: D.RT 14:40
PROVIDERS: ATTEND Internal Medicine Pulmonary Disease
DX: J18.9 Pneumonia, unspecified organism (principal); N39.0 Urinary tract infection, site not specified; D64.9 Anemia, unspecified

== ENCOUNTER 2019-07-30 08:47 | Outpatient (CLI) | payer OTHER ==
--- NOTE | 2019-07-29 11:45 | NUR ---
PT CALLED, NO ANSWER NOTED.
[~2019-07-30] VITALS: Ht 154.9 cm; Wt 54.5 kg
[2019-07-30 09:12] LABS: HEMATOCRIT 28.5 % (36.0-48.0); HEMOGLOBIN 8.2 g/dL (12-16); LYMPHOCYTES 21.2 % (15-50); MCHC 28.8 g/dL (31.0-37.0); MCV 62.2 fL (80.0-100.0); PLATELET COUNT 221 10x3/uL (130-400); RBC 4.58 10x6/uL (4.00-5.40); RDW 21.5 % (11.5-14.5); WBC 5.6 10x3/uL (4.8-10.8)
[2019-07-30 09:13] LABS: MCH 17.9 pg (26.0-34.0)
[2019-07-30 09:19] LABS: APTT 31.6 SECONDS (22.8-39.4); INR 1.09 (0.85-1.17); PROTIME 13.6 SECONDS (11.6-15.0)
[2019-07-30 09:20] LABS: CALC OSMOLALITY 275 mosm/kg (275-300); CALCIUM 8.4 mg/dL (8.5-10.1); CARBON DIOXIDE 29.9 mmol/L (21.0-32.0); CHLORIDE - SERUM 104 mmol/L (98-107); CREATININE - SERUM 0.6 mg/dL (0.6-1.3); GLUCOSE 85 mg/dL (74-106); SODIUM 139 mmol/L (136-145); UREA NITROGEN 9 mg/dL (7-18); eGFR NON AFRICAN AMERICAN > 90 mL/min (90-120)
[2019-07-30] MEDS ORDERED: TRELEGY ELLIPT1 EACH INH (10:18)
[2019-07-30 10:36] VITALS: BP 125/50; Ht 154.9 cm; Wt 54.5 kg
[2019-07-30 10:56] LABS: HCG URINE NEGATIVE (NEGATIVE)
--- NOTE | 2019-07-30 13:07 | NUR ---
DC INSTRUCTIONS GIVEN TO PT. STATES UNDERSTANDNING. DC'D IV CATH FULLY INTACT.
--- NOTE | 2019-07-30 13:14 | NUR ---
PT LEFT UNIT VIA WC AT 1314
== END 2019-07-30 13:14 | disposition home or self-care (01) ==
LOC: D.SP 08:47 → D.CT 11:00 → D.SP 11:00
PROVIDERS: Radiology Diagnostic Radiology; ATTEND Internal Medicine Pulmonary Disease
DX: R93.89 Abnormal findings on diagnostic imaging of other specified body structures (principal)

== ENCOUNTER → 2019-09-07 08:00 | Outpatient (CLI) | payer OTHER ==
[2019-07-30 10:36] VITALS: BMI 22.7
[~2019-09-07 08:00] MED LIST changes: +TRELEGY ELLIPT1 EACH INH
== END | disposition home or self-care (01) ==
LOC: EDSTATUS 08:00 → D.PAN 08:00 → D.OPS 08:00
PROVIDERS: ATTEND Surgery
DX: R59.0 Localized enlarged lymph nodes (principal); Z01.810 Encounter for preprocedural cardiovascular examination; Z01.811 Encounter for preprocedural respiratory examination; Z01.812 Encounter for preprocedural laboratory examination; Z53.9 Procedure and treatment not carried out, unspecified reason

== ENCOUNTER 2020-07-18 12:21 | Outpatient (CLI) | payer OTHER, MEDICAID ==
[~2020-07-18] VITALS: Ht 154.9 cm; Wt 45.0 kg
[2020-07-18 13:28] VITALS: BP 131/77; Ht 154.9 cm; Wt 45.0 kg
--- NOTE | 2020-07-18 17:47 | NUR ---
SECOND UNIT PRBC'S COMPLETE. PATIENT HAS TOLERATED TRANSFUSION WITHOUT SIGNS OR SYMPTOMS OF TRANSFUSION REACTION. PATIENT AGREEABLE TO MONITORING FOR 30 MINUTES BEFORE DISCHARGE. DISCHARGE INSTRUCTIONS REVIEWED WITH PATIENT
--- NOTE | 2020-07-18 18:17 | NUR ---
PATIENT CONTINUES TO BE FREE OF SIGNS OR SYMPTOMS OF TRANSFUSION REACTION. LEFT HAND PIV DC'D WITH TIP INTACT. DISCHARGED HOME VIA WHEELCHAIR TO PRIVATE VEHICLE WITH DAUGHTER
== END 2020-07-18 18:17 | disposition home or self-care (01) ==
LOC: D.OPS 12:21
PROVIDERS: ATTEND Family Medicine
DX: D50.9 Iron deficiency anemia, unspecified (principal)